=== PATIENT | male | born 1950 | race Caucasian/White ===

== ENCOUNTER → 2017-02-06 | Outpatient (CLI) | payer MEDICARE, OTHER ==
--- NOTE | ~2017-02-06 | PUL ---
PAT[facility] AGE: 66 Y [address] ROOM: [place] [address] LOCATION: [facility] ADMIT DATE: 02/06/2017 Pulmonary DISCHARGE DATE: FAMILY PHYSICIAN: TONI BONILLA MD ATTENDING PHYSICIAN: TONI BONILLA NAME OF PROCEDURE: Sleep study PROCEDURE DATE: February 06, 2017 TECH: SHAWN Hayes TEST #: [facility] [id number] TECHNICAL PARAMETERS: The patient was studied using International 10/20 measuring system. While the patient was studied, there was continuous monitoring of EEG (8 leads), EOG (2 leads), EKG (3 leads), submental EMG (3 leads), tibial (4 leads), respiratory inductive plethysmography (RIP) for thoracic and abdominal effort, oral and nasal airflow with a thermocouple and pressure transducer, and oximetry. The commercial kitchen service technician also performed visual and auditory observations noting things like body position, patient's status, breath sounds, artifact, snoring level and patient comments. Continuous sound was monitored using a 2-way speaker system and video monitoring was performed using an infrared camera. Review of the entire study was performed epoch by epoch utilizing a single epoch and multiple epoch capability sleep system. MEDICAL HISTORY: The patient is a 66-year-old overweight gentleman with daytime sleepiness and snoring. SLEEP STAGE SUMMARY: The patient was studied for 475 minutes of which he slept 397 minutes. He fell asleep in 19 minutes and slept for 84% of the night. Sleep architecture revealed a decline in slow wave sleep. RESPIRATORY SUMMARY: Oxygen saturations ranged from 92-96%. This study was done to titrate CPAP which was started at 6 cm and titrated to 15 cm with good control of the respiratory events. EKG SUMMARY: Average heart rate 63 beats per minute. No dysrhythmias. LIMB MOVEMENT SUMMARY: Periodic limb movements were noted throughout the study with a limb movement index of 97 events per hour and limb movement arousal index of 15 events per hour, both which are elevated and suggest periodic limb movement disorder. SUMMARY: PAT[facility] AGE: 66 Y [address] ROOM: [place] [address] LOCATION: [facility] ADMIT DATE: 02/06/2017 Pulmonary DISCHARGE DATE: FAMILY PHYSICIAN: TONI BONILLA MD ATTENDING PHYSICIAN: TONI BONILLA 1. Obstructive sleep apnea responsive to CPAP at 15 cm. 2. Periodic limb movement disorder. PLAN: Patient will receive results from the ordering provider. SERJIO APPLE MD JUL/ /[id number] dtt: 02/28/17 1429 , Serjio Apple. dtd: 02/08/17 1436
== END | disposition disaster alternative care site (69) ==
LOC: GSLP 01-03 21:00
DX: G47.33 Obstructive sleep apnea (adult) (pediatric) (principal); G47.61 Periodic limb movement disorder